=== PATIENT | male | born 1950 | race Caucasian/White ===

== ENCOUNTER → 2016-04-12 10:02 | Day surgery (SDC) | payer MEDICARE, BC ==
--- NOTE | 2016-04-03 23:10 | HP ---
ADMISSION HISTORY AND PHYSICAL: DATE OF ADMISSION: 04/12/16 ATTENDING SURGEON: Dr. Mickey Mccloud (dictated by ALEX Reed). CHIEF COMPLAINT: Right inguinal hernia. HISTORY OF PRESENT ILLNESS: This is a 65-year-old diabetic male who has had a right groin bulge for the past 4 years or so, yet has remained about the same in size, but has been associated with increased discomfort in recent months. Pain would occur in the right groin area and sometimes radiate to the right testicle. This would be in association with increased activity. He has not had any symptoms to suggest incarceration or strangulation. He was seen in the office by Dr. Mccloud on 02/24/16 at which time, exam confirmed the presence of a reducible nontender right inguinal hernia. Dr. Mccloud has discussed with the patient the indications for repair, the risks, benefits and alternatives as well as the expected perioperative course. He would like to proceed as scheduled with laparoscopic repair right inguinal hernia with mesh. PAST MEDICAL HISTORY: Type 2 diabetes, hyperlipidemia, BPH, peripheral arterial disease. PAST SURGICAL HISTORY: Angioplasty and stenting of right lower extremity arterial stenosis in 2012, right rotator cuff repair, left carpal tunnel release. CURRENT MEDICATIONS: 1. Onglyza 5 mg once daily. 2. Aspirin 81 mg once daily (the patient is requested to hold after his dose). 3. Glipizide 10 mg b.i.d. 4. Metformin 500 mg 1 to 1.5 tablets q.a.m., 1 tablet q.p.m. 5. Welchol 625 mg 1 to 1.5 tablets b.i.d. 6. Pioglitazone 45 mg daily. 7. Viagra 50 mg daily p.r.n. ALLERGIES: AMPICILLIN (rash). FAMILY HISTORY: Negative for anesthesia problems, bleeding or clotting disorder. SOCIAL HISTORY: The patient is . 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 He is a former smoker of approximately three quarters of a pack for 20 years. He quit many years ago. He drinks alcohol rarely and denies other recreational drug use. REVIEW OF SYSTEMS: General: No recent constitutional symptoms or acute illnesses. Weight has been stable. HEENT: No problems reported. He is edentulous and uses full upper and lower dentures. He has regular eye exam. Cardiovascular: No chest pain, palpitations, history of [place], angina. He states that he has had at times an irregular rhythm, but workup was negative. Respiratory: No history of asthma, chronic cough, or shortness of breath. GI: No problems reported. Colonoscopy done in 2016 which he states was a normal exam with recommended followup of 10 years. : He is followed for BPH with no recent changes. Endocrine: Type 2 diabetes with fingersticks generally ranging from 120 to 135 and A1c from 6.5 to 7. No thyroid dysfunction. PHYSICAL EXAMINATION GENERAL: Well-nourished, well-developed male, in no acute distress. VITAL SIGNS: As per nursing. HEENT: Pupils are equal and round, reactive. EOMs intact. No conjunctival pallor. Oropharynx: Full upper and lower dentures. No intraoral lesions. NECK: No lymphadenopathy, thyromegaly, or masses. LUNGS: Clear to auscultation. No rales or wheezes. HEART: Regular rate and rhythm. No murmur noted. ABDOMEN: Soft, nontender to palpation. No palpable masses or organomegaly other than the aforementioned right inguinal hernia per Dr. Mccloud's exam. Also per Dr. Mccloud, was noted diastasis recti. No palpable hernia on the left. GENITALIA: Not reexamined today. RECTAL: Not done. BACK: No spinous processes or CVA tenderness. EXTREMITIES: No edema. Full pulse exam not done today. NEUROLOGIC: Grossly intact. SKIN: Warm and dry. No suspicious rashes or lesions. IMPRESSION: Right inguinal hernia. PLAN: Laparoscopic repair of right inguinal hernia with mesh. ALEX OJEDA CC: Dr. Justin Gallego * [id number]/[facility] #: [id number] [facility]ENTERMary
[~2016-04-12 10:02] MED LIST: Buffered Lidocaine 1% SYR 3ML* 3 ML/SYR SYRINGE INTRADERM ONE; Buffered Lidocaine 1% SYR 3ML* 3 ML/SYR SYRINGE ONE; Bupivacaine 0.25% EPI 200,000* 30 ML SDV ONE; Dexamethasone IV* 4 MG/ML 1 ML (4 MG) ONE; EPHEDrine (Pressors)* 50 MG/ML VIAL ONE; Famotidine IV* 10 MG/ML 2 ML (20 mg) IV ONE; Famotidine IV* 10 MG/ML 2 ML (20 mg) ONE; Glycopyrrolate IV* 0.2 MG/ML 1 ML VIAL ONE; HYDROcodone/ACETAMIN 5-325 MG* 1 TAB ONE; HYDROmorphone INJ* 1 MG/ML CARPUJECT SYRINGE ONE; KETAMINE HCL* 50 MG/ML 10 ML VIAL ONE; Ketorolac INJ* 30 MG/ML 1 ML VIAL ONE; Midazolam* 1 MG/ML 5 ML VIAL (5 MG) ONE; Morphine INJ* 2 MG/ML 1 ML CARPUJECT IV PRN; Neostigmine Methylsulfate* 2 MG/2 ML SYRINGE ONE; Ondansetron INJ* 2 MG/ML VIAL ONE; PROCHLORPERAZINE INJ 5 MG/ML 2 ML VIAL IV PRN; Propofol* 10 MG/ML 20 ML BTL IV PUSH ONE; ceFAZolin 2 GM PREMIX (*) 2 GM/50 ML BAG IVPB ONE; fentaNYL* 50 MCG/ML 2 ML VIAL (100 MCG VIAL) ONE; oxyCODONE/Acetamin 5/325 MG* TAB ONE; oxyCODONE/Acetamin 5/325 MG* TAB PO PRN
--- NOTE | 2016-04-12 14:36 | SURGPN ---
Brief Operative Note - Surgery Procedures: Procedures Preop Dx: right Inguinal hernia Postop Dx: same Procedure: laparoscopic repair RIH w/ mesh Anesthesia: GET Surgeon: Rogers Asst: none EBL: none fluids: 1700 cc RL findings: dictated
[2016-04-12] MEDS: fentaNYL* 50 MCG/ML 2 ML VIAL (100 MCG VIAL) IV PRN ×4 (15:15→16:31)
[2016-04-12 17:00] VITALS: BP 143/81
--- NOTE | 2016-04-18 03:31 | OP ---
DATE OF SURGERY: 04/12/16 [facility] DATE OF : 48 SURGEON: Dr. Mccloud. MANAGEMENT NURSE RN: None. ANESTHESIOLOGIST: Dr. Styles. ANESTHESIA: General anesthesia. PRE-OP DIAGNOSIS: Right inguinal hernia. POST-OP DIAGNOSIS: Right inguinal hernia. OPERATIVE PROCEDURE: Laparoscopic repair of right inguinal hernia with mesh. ESTIMATED BLOOD LOSS: Minimal. FLUIDS: 1700 cc of crystalloid fluid given. DRAINS: None. DESCRIPTION OF PROCEDURE: The patient was identified in the preoperative area, marked, and brought to the operating room, placed on the operating table in supine position. Preoperative antibiotics were given. Sequential devices were placed on bilateral lower extremities. General anesthesia was induced. The patient's abdomen was clipped off hair and prepped and draped in standard surgical fashion. A time-out was performed. An infraumbilical incision was made. This was deepened down to the anterior fascia on the left. This was incised and attempt to find a rectus pillar on his right side proved difficult and it seemed that we were in an area of rectus diastasis without a clear delineation of the muscle. For this reason, we made a separate incision overlying the anterior fascia more inferior to this. The right rectus pillar was then identified and this was retracted laterally and entry to the preperitoneal plane was then made. This was bluntly dissected with finger dissection and next, a 12-mm blunt trocar was then inserted at the preperitoneal plane, which was then allowed to insufflate to a pressure of 12 mmHg. Camera was inserted, blunt dissection with the camera was then utilized to free up loose areolar tissue right down to the pubic symphysis and we cleared off areas of the left and right Karthikeyan's ligament. Next, two 5-mm trocars were placed in the lower midline and again blunt dissection was carried out to expose a direct hernia. This was reduced with gentle traction. Next the Bogros space was cleared out laterally. The peritoneum extending towards the internal ring was then identified. This was bluntly dissected free , but this was not a very significant indirect hernia. Next, a large right-sided Bard mesh was then rolled up, placed into the preoperational plane and allowed to unfurl. This was tagged with permanent tags to the lateral aspect and also to just above the pubic symphysis and then the Karthikeyan's ligament. It covered the full myopectineal orifice, which was then allowed to collapse and then the 5-mm trocar was then removed. It should be noted that a small rent in the peritoneum was earlier made when we were dissecting the area around the internal ring. This was closed with 3 Endo clips. The 12-mm blunt trocar was then removed and we opened up the posterior fascia to allow the air to escape that had entered the intraabdominal space. Next, the posterior layer was closed with 2-0 Polysorb suture and the anterior layer was closed with an interrupted 0-Polysorb in a [id number] fashion. We closed the initial fascial incision superior to this, again with an 0- Polysorb suture. The wound was then irrigated and all 3 skin incision were reapproximated with 4-0 Monocryl subcuticular sutures followed by Steri-Strips and sterile dressing. The patient tolerated the procedure well, was woken up in the OR, and transferred to the PACU in stable condition. CC: Justin Gallego MD * [id number]/[facility] #: [id number] MELISSA
== END | disposition home or self-care (01) ==
LOC: OR 10:02
PROVIDERS: ATTEND Surgery
DX: K40.90 Unilateral inguinal hernia, without obstruction or gangrene, not specified as recurrent (principal); E11.8 Type 2 diabetes mellitus with unspecified complications; Z79.84 Long term (current) use of oral hypoglycemic drugs; I73.9 Peripheral vascular disease, unspecified; Z79.82 Long term (current) use of aspirin
CPT/HCPCS: A9270-GY; C1776; C1781; J0690; J1100; J1170; J1885; J2250; J2405; J2704; J3010

== ENCOUNTER → 2018-06-04 09:36 | Day surgery (SDC) | payer MEDICARE, BC ==
[~2018-06-04 09:36] MED LIST changes: +Acetaminophen TAB* 325 MG PO PRN; -Buffered Lidocaine 1% SYR 3ML* 3 ML/SYR SYRINGE INTRADERM ONE; -Buffered Lidocaine 1% SYR 3ML* 3 ML/SYR SYRINGE ONE; -Bupivacaine 0.25% EPI 200,000* 30 ML SDV ONE; -Dexamethasone IV* 4 MG/ML 1 ML (4 MG) ONE; +Diazepam TAB(*) 5 MG ONE; -EPHEDrine (Pressors)* 50 MG/ML VIAL ONE; -Famotidine IV* 10 MG/ML 2 ML (20 mg) IV ONE; -Famotidine IV* 10 MG/ML 2 ML (20 mg) ONE; -Glycopyrrolate IV* 0.2 MG/ML 1 ML VIAL ONE; -HYDROcodone/ACETAMIN 5-325 MG* 1 TAB ONE; -HYDROmorphone INJ* 1 MG/ML CARPUJECT SYRINGE ONE; +Heparin 2 UNITS/ML IVPREMIX* 3,000 UNIT/1,500 ML BAG IV ONE; +Heparin(*) 1000 UNIT/ML 10 ML VIAL CATH LAB IV ONE; +Iohexol 350 (CONTRAST) 200 ML MDV IV ONE; -KETAMINE HCL* 50 MG/ML 10 ML VIAL ONE; -Ketorolac INJ* 30 MG/ML 1 ML VIAL ONE; +Lidocaine 1% INJ* 10 MG/ML 30 ML SDV ONE; -Morphine INJ* 2 MG/ML 1 ML CARPUJECT IV PRN; +NS 0.9% 1000 ML** 1,000 ML IV SCH; -Neostigmine Methylsulfate* 2 MG/2 ML SYRINGE ONE; -Ondansetron INJ* 2 MG/ML VIAL ONE; -PROCHLORPERAZINE INJ 5 MG/ML 2 ML VIAL IV PRN; -Propofol* 10 MG/ML 20 ML BTL IV PUSH ONE; +VERAPAMIL 2.5 MG/ML 2 ML VIAL ** 5 mg/2 ml ONE; -ceFAZolin 2 GM PREMIX (*) 2 GM/50 ML BAG IVPB ONE; +diPHENhydraMINE PO* 25 MG ONE; +nitroGLYCERIN DRIP* 25,000 MCG/250 ML BTL ONE; -oxyCODONE/Acetamin 5/325 MG* TAB ONE; -oxyCODONE/Acetamin 5/325 MG* TAB PO PRN
--- NOTE | 2018-06-04 14:06 | CATH ---
CC: Dr. Mickey Wolff; Dr. Justin Gallego; Dr. Jerod Lim at [place], [place]. CARDIAC CATHETERIZATION: DATE OF PROCEDURE: 06/04/18 PROCEDURE: Cardiac catheterization including coronary angiography. INDICATION: Abnormal stress test, chest pain. The patient is a 67-year-old gentleman with a history of peripheral vascular disease who underwent an exercise stress test recently; it demonstrated significant ST segment depression and chest pain with exertion. Cardiac catheterization was recommended. DESCRIPTION OF PROCEDURE: The patient was brought to the procedure room in a fasting state. Informe d consent had been obtained prior to the procedure. All labs were reviewed. The patient was placed supine on the procedure table. His right radial wrist was prepped and draped in the usual fashion. 1% lidocaine was used for local anesthesia. The radial artery was entered by Seldinger technique and a guidewire was placed. Over the guidewire a 6-Niuean sheath introducer was placed through which an infusion of heparin, nitroglycerin, and verapamil was infused. The patient underwent coronary angio graphy using a 6-Niuean TIG catheter and a 6-Niuean JL4 catheter. Multiple attempts were made to cross the aortic valve, but because of the dilation of the aortic root it was difficult to orient and cross the valve. At the end of the procedure all the sheaths and cat heters were removed. The patient tolerated the procedure well with no complications. A total of 40 cc of Omnipaque dye was used. A total of 9 minutes of fluoro time was used. FINDINGS: 1. Right coronary artery. The right coronary artery was occluded in its proximal portion. There we re right to right collaterals to the mid and distal right coronary artery. The PDA itself had no sig nificant disease. The posterolateral branch was occluded at its distal portion with filling from the left system. 2. 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 The distal portion of the left main as it tapered into the LAD had probably a 75% stenosis. The LAD had a proximal 60% stenosis and a mi d 50% stenosis. The remainder of the vessel was without disease. There were 2 diagonal vessels off the LAD. The first diagonal was a reasonable size vessel. 3. Left circumflex artery: The left circumflex artery was normal in size. It gave off 2 obtuse mar ginal branches. The ostial portion of the left circumflex artery had a 50% stenosis. The OM1 and OM 2 vessels were without disease. There was evidence of left to right collaterals to the posterolatera l branch. IMPRESSION: 1. Significant 3-vessel coronary artery disease as described above. 2. 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 3. Critical stenosis of the proximal LAD, proximal right coronary artery, and proximal left circumfl ex artery. 4. Unable to do left ventriculogram. RECOMMENDATIONS: The patient was referred for coronary bypass surgery up at [facility] u nder the care of Dr. Jerod Lim. Echocardiogram will be obtained today to evaluate LV function a nd valvular status. [id number]/[facility] #: [id number]
[2018-06-04 14:54] VITALS: BP 164/89
--- NOTE | 2018-06-04 15:03 | ECHO ---
Patient: EVELYN CRANE [facility] Rec#: [id number] : 1950 Date: 06/04/2018 Age: 67y Height: 175 cm / 68.9 in Weight: 82 kg / 180.7 lbs Sex: M BSA: 1.98 Admit Date#: 06/04/2018 Type: Outpatient Referring: Grayson Mccabe MD Reading: Grayson Mccabe MD Director Of Tax Services: Loren WillRDCS,RDMS Transthoracic Echocardiogram Indication: CP BP: 157/76 HR: 55 Rhythm: NSR with PVCs Findings History: HTN, HLD, DM, angina, arrhythmia, former smoker Technical Comments: The study quality is good. Left Ventricle: The left ventricular chamber size is normal. Mild concentric left ventricular hypertrophy is observed. Global left ventricular wall motion and contractility are within normal limits. There is normal left ventricular systolic function. The estimated ejection fraction is 50-55%. There is an E to A reversal in the mitral valve flow pattern suggestive of diastolic dysfunction. Left Atrium: The left atrium is mildly dilated. Right Ventricle: The right ventricular chamber size and systolic function are within normal limits. Right Atrium: The right atrium is mildly dilated. Aortic Valve: The aortic valve leaflets are mildly thickened. Systolic excursion of the aortic valve cusps is reduced. There is aortic annular calcification. There is a trace of aortic regurgitation. There is mild to moderate aortic stenosis. The mean gradient of the aortic valve is 11 mmHg. The aortic valve area, by peak velocities, is calculated at 1.1 cm2. Mitral Valve: The mitral valve leaflets are mildly thickened. There is trace to mild mitral regurgitation. There is no evidence of mitral stenosis. Tricuspid Valve: The tricuspid valve leaflets are normal. There is trace tricuspid regurgitation. Unable to estimate the right ventricular systolic pressure. Pulmonic Valve: The pulmonic valve structure is not well visualized. There is no evidence of pulmonic valve thickening. There is a trace pulmonic regurgitation. Pericardium: There is no significant pericardial effusion. Aorta: The aortic root appears normal. There is no dilatation of the aortic arch. Pulmonary Artery: The main pulmonary artery is not well visualized. Venous: The inferior vena cava appears normal in size. There is a greater than 50% respiratory change in the inferior vena cava dimension. Conclusions Mild concentric left ventricular hypertrophy is observed. Global left ventricular wall motion and contractility are within normal limits. There is normal left ventricular systolic function. The estimated ejection fraction is 50-55%. Systolic excursion of the aortic valve cusps is reduced. There is a trace of aortic regurgitation. There is mild to moderate aortic stenosis. The mean gradient of the aortic valve is 11 mmHg. There is trace to mild mitral regurgitation. There is trace tricuspid regurgitation. Unable to estimate the right ventricular systolic pressure. There is no significant pericardial effusion. Measurements Name Value Normal Range RVIDd (AP) 2D 2.5 cm (0.9 - 2.6) RVDdMajor (2D) 3.8 cm (2.2 - 4.4) RAd ISD 4CH 5.5 cm (3.4 - 4.9) RA (A4C)W 3.8 cm (2.9 - 4.6) IVSd (2D) 1.1 cm (0.6 - 1) LVPWd (2D) 1 cm (0.6 - 1) LVIDd (2D) 5.4 cm (3.6 - 5.4) LVIDs (2D) 3.5 cm - LV FS (2D) 35 % (25 - 45) Aortic Annulus 2.8 cm (1.4 - 2.6) Ao root diameter (2D) 3.3 cm (2.1 - 3.5) Ascending Ao 3 cm (2.1 - 3.4) Aortic arch 2.9 cm (1.8 - 3.4) LA dimension (AP) 2D 3.3 cm (2.3 - 3.8) LAd ISD 4CH 5.9 cm (2.9 - 5.3) LA ISD 4CH W 4.4 cm (2.5 - 4.5) Name Value Normal Range LA ESV BP (A/L) index 39 ml/m2 - Name Value Normal Range MV E-wave Vmax 0.8 m/sec - MV deceleration time 203 msec - MV A-wave Vmax 1 m/sec - MV E:A ratio 0.8 ratio - LV septal e' Vmax 0.06 m/sec - LV lateral e' Vmax 0.09 m/sec - LV E:e' septal ratio 14 ratio - LV E:e' lateral ratio 9 ratio - Name Value Normal Range AV Vmax 2.3 m/sec - AV VTI 59 cm - AV peak gradient 22 mmHg - AV mean gradient 11 mmHg - LVOT diameter 2.1 cm - LVOT Vmax 0.7 m/sec - LVOT VTI 15 cm - LVOT peak gradient 2 mmHg - LVOT mean gradient 1 mmHg - DOI (VTI) 0.3 ratio - NICOL (continuity Vmax) 1.1 cm2 - NICOL (continuity VTI) 0.9 cm2 - Name Value Normal Range IVC diameter 1.9 cm - Name Value Normal Range PV Vmax 0.8 m/sec - PV peak gradient 2.6 mmHg -
== END | disposition home or self-care (01) ==
LOC: CHICATH 09:36
PROVIDERS: ATTEND Specialist
DX: R94.39 Abnormal result of other cardiovascular function study (principal); E78.5 Hyperlipidemia, unspecified; I73.9 Peripheral vascular disease, unspecified; E11.69 Type 2 diabetes mellitus with other specified complication; F17.201 Nicotine dependence, unspecified, in remission; Z79.84 Long term (current) use of oral hypoglycemic drugs; Z79.82 Long term (current) use of aspirin; I10 Essential (primary) hypertension
CPT/HCPCS: 93306; 93454; 99156; 99157; A9270-GY; J1644; J2250; J3010

== ENCOUNTER 2020-06-13 09:34 | Inpatient (IN) ==
[2020-06-13 10:00] LABS: ABS Basophils 0.1 10^3/ul (0-0.2); ABS Eosinophils 0.2 10^3/ul (0-0.6); ABS Lymphocytes 0.8 10^3/ul (1.0-4.8); ABS Monocytes 0.5 10^3/ul (0-0.8); ABS Neutrophils 4.3 10^3/ul (1.5-7.7); Eosinophil % 2.7 %; Hematocrit 38 % (42-52); Hemoglobin 12.9 g/dL (14.0-18.0); Lymphocyte % 13.7 %; Mean Corpuscular HGB Conc 34 g/dL (31-36); Mean Corpuscular Hemoglobin 30 pg (27-31); Mean Corpuscular Volume 89 fL (80-94); Mean Platelet Volume 8.4 fL (7.4-10.4); Nucleated Red Blood Cells % 0.1; Platelet Count 180 10^3/uL (150-450); Red Blood Count 4.28 10^6 /uL (4.18-5.48); Red Cell Distribution Width 15 % (10-15); White Blood Count 5.8 10^3/uL (3.5-10.8)
[2020-06-13 10:42] LABS: Troponin I 0.06 ng/mL (<0.03)
[2020-06-13 10:53] LABS: INR 1.14 (0.82-1.09)
[2020-06-13 10:55] LABS: ALT 49 U/L (7-52); AST 32 U/L (13-39); Albumin 4.7 g/dL (3.2-5.2); Albumin/Globulin Ratio 1.7 (1-3); Alkaline Phosphatase 91 U/L (34-104); Anion Gap 10 mmol/L (2-11); BUN/Creatinine Ratio 21.4 (8-20); Blood Urea Nitrogen 22 mg/dL (6-24); CO2 Carbon Dioxide 24 mmol/L (22-32); Calcium 9.8 mg/dL (8.6-10.3); Chloride 104 mmol/L (101-111); EGFR African American 86.4 (>60); EGFR Non-African American 71.4 (>60); Globulin 2.7 g/dL (2-4); Glucose 222 mg/dL (70-100); Potassium 4.3 mmol/L (3.5-5.0); Sodium 138 mmol/L (135-145); Total Protein 7.4 g/dL (6.4-8.9)
[2020-06-13] MEDS ORDERED: Ondansetron 4 mg VIAL 2 MG/ML 2 ml VIAL IV PRN (12:24)
[2020-06-13] MEDS ORDERED: Furosemide 20 mg/2 ml IV VIAL IV SLOW PU ONE (12:33)
[2020-06-13] MEDS ORDERED: Dextrose 50% Syringe 50 ml 25 GM/50 ML SYRINGE IV PUSH PRN (12:41)
[2020-06-13 13:18] LABS: TSH Ultra Thyroid Stim Horm 3.58 mcIU/mL (0.34-5.60)
[2020-06-13 13:30] LABS: Troponin I 0.06 ng/mL (<0.03)
[2020-06-13 13:44] LABS: Magnesium 1.8 mg/dL (1.9-2.7)
[2020-06-13] MEDS ORDERED: Nitroglycerin 0.3 mg/hr PATCH (7.5 mg) TRANSDERM SCH (14:00)
[2020-06-13] MEDS: Enoxaparin 40 MG/0.4 ML SYR SUBCUT SCH (14:12)
[2020-06-13] MEDS: Nitroglycerin 0.1 mg/hr PATCH (2.5 mg) TRANSDERM SCH (14:58)
[2020-06-13] MEDS: Nitroglycerin 0.2 mg/hr PATCH (5 mg) TRANSDERM SCH (14:59)
[2020-06-13 16:01] LABS: Troponin I 0.06 ng/mL (<0.03)
[2020-06-13] MEDS: Furosemide 40 mg/4 ml IV VIAL IV SLOW PU SCH (17:04)
[2020-06-13] MEDS: Nitro Patch/OINT Remove PATCH PATCH OFF SCH (20:46)
[2020-06-14 04:47] LABS: ABS Eosinophils 0.2 10^3/ul (0-0.6); ABS Lymphocytes 0.8 10^3/ul (1.0-4.8); ABS Monocytes 0.5 10^3/ul (0-0.8); ABS Neutrophils 4.1 10^3/ul (1.5-7.7); Eosinophil % 3.7 %; Hematocrit 36 % (42-52); Hemoglobin 12.5 g/dL (14.0-18.0); Lymphocyte % 13.7 %; Mean Corpuscular HGB Conc 35 g/dL (31-36); Mean Corpuscular Hemoglobin 30 pg (27-31); Mean Corpuscular Volume 87 fL (80-94); Mean Platelet Volume 8.2 fL (7.4-10.4); Platelet Count 166 10^3/uL (150-450); Red Blood Count 4.13 10^6 /uL (4.18-5.48); Red Cell Distribution Width 15 % (10-15); White Blood Count 5.7 10^3/uL (3.5-10.8)
[2020-06-14 05:00] LABS: BUN/Creatinine Ratio 18.2 (8-20); Calcium 9.4 mg/dL (8.6-10.3); EGFR African American 80.1 (>60); EGFR Non-African American 66.2 (>60); Magnesium 1.8 mg/dL (1.9-2.7); Potassium 4.1 mmol/L (3.5-5.0)
[2020-06-14] MEDS ORDERED: Insulin GLARGINE 100 un/ml 10 ml VIAL SUBCUT SCH (09:00)
[2020-06-14] MEDS: Furosemide 40 mg/4 ml IV VIAL IV SLOW PU SCH (09:13)
[2020-06-14] MEDS: Aspirin EC 81 mg TAB.EC (enteric coated) PO SCH (09:13)
[2020-06-14] MEDS: Nitroglycerin 0.2 mg/hr PATCH (5 mg) TRANSDERM SCH (09:20)
[2020-06-14] MEDS: Nitroglycerin 0.1 mg/hr PATCH (2.5 mg) TRANSDERM SCH (09:35)
[2020-06-14] MEDS: Enoxaparin 40 MG/0.4 ML SYR SUBCUT SCH (12:25)
[2020-06-14] MEDS ORDERED: Furosemide 20 mg/2 ml IV VIAL IV SLOW PU ONE (18:00)
[2020-06-14] MEDS: Nitro Patch/OINT Remove PATCH PATCH OFF SCH (20:55)
[2020-06-15 05:29] LABS: ABS Eosinophils 0.3 10^3/ul (0-0.6); ABS Monocytes 0.6 10^3/ul (0-0.8); ABS Neutrophils 4.5 10^3/ul (1.5-7.7); Eosinophil % 5.3 %; Hematocrit 39 % (42-52); Hemoglobin 13.3 g/dL (14.0-18.0); Lymphocyte % 15.6 %; Mean Corpuscular HGB Conc 35 g/dL (31-36); Mean Corpuscular Hemoglobin 30 pg (27-31); Mean Corpuscular Volume 87 fL (80-94); Mean Platelet Volume 7.8 fL (7.4-10.4); Platelet Count 193 10^3/uL (150-450); Red Blood Count 4.43 10^6 /uL (4.18-5.48); Red Cell Distribution Width 15 % (10-15); White Blood Count 6.4 10^3/uL (3.5-10.8)
[2020-06-15 05:48] LABS: BUN/Creatinine Ratio 21.6 (8-20); Calcium 9.4 mg/dL (8.6-10.3); EGFR African American 87.4 (>60); EGFR Non-African American 72.2 (>60); Potassium 3.9 mmol/L (3.5-5.0)
[2020-06-15 06:01] LABS: Troponin I 0.06 ng/mL (<0.03)
[2020-06-15] MEDS ORDERED: Regadenoson 0.4 MG/5 ML SYRINGE ONE (07:55)
[2020-06-15] MEDS ORDERED: Aminophylline 25 MG/ML VIAL ONE (07:55)
[2020-06-15] MEDS ORDERED: Insulin GLARGINE 100 un/ml 10 ml VIAL SUBCUT SCH (09:00)
[2020-06-15] MEDS: Nitroglycerin 0.1 mg/hr PATCH (2.5 mg) TRANSDERM SCH (10:32)
[2020-06-15] MEDS: Nitroglycerin 0.2 mg/hr PATCH (5 mg) TRANSDERM SCH (10:33)
[2020-06-15] MEDS ORDERED: Potassium Chlor 20 meq TAB.ER PO ONE (11:08)
[2020-06-15] MEDS ORDERED: Furosemide 20 mg/2 ml IV VIAL IV SLOW PU ONE (11:10)
[2020-06-15] MEDS: Aspirin EC 81 mg TAB.EC (enteric coated) PO SCH (11:28)
[2020-06-15] MEDS: Enoxaparin 40 MG/0.4 ML SYR SUBCUT SCH (12:50)
[2020-06-15 17:09] LABS: Glucose Confirmatory 433 mg/dL (70-100)
[2020-06-15] MEDS: Nitro Patch/OINT Remove PATCH PATCH OFF SCH (21:28)
[2020-06-16 07:14] LABS: Calcium 9.5 mg/dL (8.6-10.3); EGFR African American 85.4 (>60); EGFR Non-African American 70.6 (>60); Magnesium 2.1 mg/dL (1.9-2.7); Potassium 4.8 mmol/L (3.5-5.0)
[2020-06-16] MEDS ORDERED: Insulin GLARGINE 100 un/ml 10 ml VIAL SUBCUT SCH (09:00)
[2020-06-16] MEDS: Aspirin EC 81 mg TAB.EC (enteric coated) PO SCH (09:10)
[2020-06-16] MEDS: Nitroglycerin 0.2 mg/hr PATCH (5 mg) TRANSDERM SCH (09:11)
[2020-06-16] MEDS: Nitroglycerin 0.1 mg/hr PATCH (2.5 mg) TRANSDERM SCH (09:15)
[2020-06-16] MEDS: Enoxaparin 40 MG/0.4 ML SYR SUBCUT SCH (12:32)
[2020-06-16 17:52] VITALS: BP 140/67
== END 2020-06-16 16:00 | disposition home or self-care (01) | DRG 293 ==
LOC: ED 09:34 → MEDTELE 12:25
PROVIDERS: ADMIT Hospitalist; ATTEND Internal Medicine